=== PATIENT | male | born 1965 | race Hispanic/Latino ===

== ENCOUNTER 2017-04-15 14:48 | Emergency (ER) | payer OTHER ==
[~2017-04-15] VITALS: Ht 167.6 cm; Wt 77.3 kg
[2017-04-15 14:59] VITALS: BP 119/77; PULSE 72; RESP 20; O2SAT 95
--- NOTE | 2017-04-15 15:41 | ED.REPORT ---
HPI-General Illness Date of Service Apr 15, 2017 ED Provider: The patient is a 51 year old male who presents to the emergency department complaining of right wrist/forearm pain that began 2 days ago. The patient was using a power tool at home on Sunday when he accidentally hit his right upper extremity causing superficial butts and severe wrist pain. His pain does not radiate up into his elbow. He denies any other injuries. He did not hit his head or lose consciousness. His pain has worsened since onset and is exacerbated with movement. He has taken Motrin with some relief of his pain. His last tetanus was 5 years ago. He denies fever, chills, chest pain, shortness of breath, abdominal pain or headache. He is right hand dominant. Nursing Notes Stated Complaint: BURN ON RIGHT ARM Chief Complaint: Extremity Trauma Nursing Notes Reviewed: Yes Allergies: Coded Allergies: No Known Allergies (Unverified , 04/15/17) General Time Seen by MD: 15:41 Chief Complaint Other (right wrist pain) Hx Obtained From: Patient Arrived By: Walk-in Sudden in Onset?: Yes Onset Occurred: 2 days ago Symptom Duration: Since onset Location: : Forearm right: Wrist right Quality: Painful Severity: Current: Pain level 6 out of 10 Severity: Maximum: Severe Associated with: Denies: Abdominal pain, Chest pain, Headache, Shortness of breath Pertinent Negative: Pt denies other symptoms Exacerbated by: Moving affected area Relieved by: OTC medications, Remaining still Recent Healthcare: No recent doctor visit, No recent hospitalization Similar Sx Previous: No Past Medical History Past Medical History Asthma Vertigo Past Surgical History None Family History Noncontributory Smoking History Never Smoker Social History Alcohol Use: Denies alcohol use Drug Use: Denies drug use Other Social History: Good social support, , Local resident Ambulatory Status Independent Review of Systems Full Review of Systems Constitutional: Denies: Chills, Fever Respiratory: Denies: Shortness of breath Cardiovascular: Denies: Chest pain GI: Denies: Abdominal pain Musculoskeletal: Reports: Extremity pain, Extremity swelling, Joint pain, Joint swelling Neurologic: Denies: Change LOC, Headache, Syncope Complete sys rev & neg: except as marked. Physical Exam Nursing note and vitals reviewed. Constitutional: Well-developed, well-nourished. Not diaphoretic. Head: Normocephalic and atraumatic. Mouth/Throat: Oropharynx is clear and moist. No oropharyngeal exudate. Eyes: EOM are normal. Pupils are equal, round, and reactive to light. Neck: Supple, no tracheal deviation. Cardiovascular: Normal rate, regular rhythm. Equal and intact distal pulses throughout. Pulmonary/Chest: Effort normal and breath sounds normal. No respiratory distress. Abdominal: Soft. No distension. There is no tenderness, rebound, or guarding. Bowel sounds present. Musculoskeletal: His range of motion of his right wrist is limited secondary to pain but sensation throughout all of the dermatomes are intact and equal. His strength and sensation is intact. He can fire all muscles in his right hand and forearm. His compartments are soft in his right forearm. He has abrasions to the dorsal aspect of his right forearm down to his wrist. He has no tenderness to his right elbow or shoulder. His left upper extremity is completely atraumatic. Neurological: AOx3. Grossly nonfocal exam. Strength and sensation intact and equal to bilateral upper and lower extremities. Skin: Warm and dry, no rashes or pallor appreciated. Psychiatric: Appropriate mood and affect. Behavior appears normal. Vital Signs Vital Signs Date Time Temp Pulse Resp B/P Pulse Ox O2 Delivery O2 Flow Rate FiO2 04/15/17 20:32 67 18 124/79 97 Room Air 04/15/17 14:59 36.8 72 20 119/77 95 Room Air Initial VS: Reviewed Interpretation & Diagnostics X-Ray Interpretation Xray Interpretation: IMPRESSION: Mildly displaced intra-articular fracture of the radial styloid. Dictated by: Benedicto Colon M.D. on 04/15/2017 at 19:01 X-Ray Ordered: Wrist right Interpretation / Wet Read by: Interpret - Radiologist Xray Interpretation: IMPRESSION: No fracture or dislocation. Olecranon spurring. Dictated by: Benedicto Colon M.D. on 04/15/2017 at 19:03 X-Ray Ordered: Elbow right Interpretation / Wet Read by: Interpret - Radiologist Procedures Splint Application - Fx Mgt Time: 17:52 Procedure Performed by: ED physician Precise Anatomic Location: Right wrist Type of Immobilization: Sugar tong Definitive Fracture Care: Pain control, Splint, Follow up > 4 days Post-Procedure / Complications: Cap refill normal, Post splint vascular nl, Post splint neuro nl, Condition improved, Tolerated procedure well, Patient stable Splint Post-Application Eval Extremity Condition: Cap refill < 2 sec, Distal sensation intact, Distal motor Intact, No compartment syndrome Re-Eval/Medical Decision Med Decision/Clinical Course 51-year-old male presenting to the ED for evaluation of right forearm and wrist pain over the past several days after an accident with a power tool. Neurovascularly intact. X-ray demonstrates a intra-articular distal radius fracture. There are some abrasions to his forearm, however no lacerations, do not think that this is a open fracture at this time. This was discussed with the on-call orthopedic surgeon as noted below. Patient placed in a splint with Xeroform gauze on top of the abrasions. Tolerated well. Plan discharge with pain medication, antibiotics, and follow-up with orthopedics tomorrow. Patient agreeable to the plan as stated, careful return precautions were discussed. Source of Hx: Family Time of Eval: 20:07 Re-Evaluation/Progress Note: Discussed plan for discharge with outpatient followup. All questions were addressed. Consultation : Referral / Consult Name: Darius Jewell MD Consulted With: Orthopedic Call Returned at: 17:48 Bss Solution Architect: Will see in office, Agrees with eval, Agrees with plan Note: She recommends Keflex 500 TID and a sugar tong splint, and she will see him in clinic. They will call him tomorrow to schedule an appointment. Counseled Regarding: Diagnosis, Need for follow-up, When/why to return to ED Discharge & Departure Primary Impression: Radial head fracture Encounter type: initial encounter Fracture type: closed Fracture alignment : nondisplaced Laterality: right Qualified Code: S52.124A - Nondisplaced fracture of head of right radius, initial encounter for closed fracture Additional Impression: Abrasion forearm Disposition: Home Discharge Condition All VS Reviewed: Yes Condition: Stable Patient Instructions: Splint Care (ED), Wrist Fracture in Adults (ED) Additional Instructions: Thank you for entrusting us with your care today. Your x-ray today does show evidence of a proximal radius fracture. You will need to followup with an orthopedist. We have given you a referral to Dr. Jewell. If her office does not contact you by tomorrow afternoon, call to schedule an appointment. Wear the splint until you are evaluated by the orthopedist. You can use ibuprofen and [place] as needed for your pain. Take the antibiotic as prescribed to prevent an infection. Return to the emergency department for any new or concerning symptoms. Referrals: Darius Jewell MD Attestation Portions of this note were transcribed by Luly Mcclendon. I, Dr. Gomez personally performed the history, physical exam and medical decision-making; I reviewed and confirmed the accuracy of the information in the transcribed note. Signed by: Camelia Solomon, 04/15/2017 at 2015. copies to: Darius Jewell MD, William B MD Apr 15, 2017 15:41 Luly Mcclendon Apr 15, 2017 16:23
[2017-04-15] MEDS ORDERED: HYDROcodone-APAP 5-325 mg Tablet PO ONE (16:25)
--- NOTE | 2017-04-15 19:04 | DRSVH ---
PROCEDURE: X-RAY RIGHT WRIST COMPLETE, MINIMUM THREE VIEWS ([id number]) INDICATIONS: right wrist swelling, power took injury TECHNIQUE: 3 views of the wrist were acquired. COMPARISON: None. FINDINGS: Bones: There is a intra-articular fracture and distal radial styloid with mild displacement.. No sarah beth picious bony lesions. Scaphoid view: Scaphoid appears intact Soft tissues: No suspicious soft tissue calcifications. IMPRESSION: Mildly displaced intra-articular fracture of the radial styloid. Dictated by: Benedicto Colon M.D. on 04/15/2017 at 19:01 Approved by: Benedicto Colon M.D. on 04/15/2017 at 19:02
--- NOTE | 2017-04-15 19:06 | DRSVH ---
PROCEDURE: X-RAY RIGHT ELBOW COMPLETE, MINIMUM THREE VIEWS ([id number]) INDICATIONS: distal radius fx; eval for other injury, fx, etc TECHNIQUE: 3 views of the elbow were acquired. COMPARISON: None. FINDINGS: Bones: No fractures or dislocations. No suspicious bony lesions. There is olecranon spurring. Soft tissues: No elbow joint effusion. No suspicious soft tissue calcifications. IMPRESSION: No fracture or dislocation. Olecranon spurring. Dictated by: Benedicto Colon M.D. on 04/15/2017 at 19:03 Approved by: Benedicto Colon M.D. on 04/15/2017 at 19:04
[2017-04-15] MEDS ORDERED: _HYDROcodone/APAP 5-325 mg Tablet PO PRN (20:15)
[2017-04-15] MEDS ORDERED: _Cephalexin 500 mg Capsule PO SCH (20:30)
[2017-04-15 20:32] VITALS: BP 124/79; PULSE 67; RESP 18; O2SAT 97
== END 2017-04-15 21:16 | disposition home or self-care (01) ==
LOC: SED 14:48
DX: S52.124A Nondisplaced fracture of head of right radius, initial encounter for closed fracture (principal); S50.811A Abrasion of right forearm, initial encounter; W29.8XXA Contact with other powered hand tools and household machinery, initial encounter; Y92.009 Unspecified place in unspecified non-institutional (private) residence as the place of occurrence of the external cause; Y93.89 Activity, other specified; Y99.8 Other external cause status